=== PATIENT | female | born 1955 | race Two or more races ===

== ENCOUNTER → 2016-04-23 | Outpatient (CLI) | payer BC, OTHER ==
[2015-12-31 07:42] VITALS: BP 145/72
[~2016-04-23] MED LIST: ATOR10TA60 PO
[2016-04-23 08:04] LABS: BASO # 0.1 x10^3/uL (0.0-0.2); BASO % 1 % (0-3); EOS % 2 % (0-3); HEMATOCRIT 46.2 % (36.0-47.0); LYMPH # 2.9 x10^3/uL (1.0-4.8); LYMPH % 32 % (24-48); MEAN CORPUSCULAR HEMOGLOBIN 29 pg (25-35); MEAN CORPUSCULAR HGB CONC 33 g/dL (31-37); MEAN CORPUSCULAR VOLUME 90 fL (79-100); MONO % 8 % (0-9); NEUT % 58 % (31-73); PLATELET COUNT 184 x10^3/uL (140-400); RED BLOOD COUNT 5.14 x10^6/uL (3.50-5.40); RED CELL DISTRIBUTION WIDTH 13.8 % (11.5-14.5); WHITE BLOOD COUNT 9.2 x10^3/uL (4.0-11.0)
[2016-04-23 08:43] LABS: ALBUMIN/GLOBULIN RATIO 1.3 (1.0-1.7); CALCIUM 9.3 mg/dL (8.5-10.1); CHOLESTEROL/HDL RATIO 3.3; CREATININE 0.8 mg/dL (0.6-1.0); GFR 73.2; POTASSIUM 4.3 mmol/L (3.5-5.1); TOTAL BILIRUBIN 0.7 mg/dL (0.2-1.0); TOTAL PROTEIN 7.2 g/dL (6.4-8.2)
[2016-04-23 09:13] LABS: PLT ESTIMATE ADEQUATE (ADEQUATE)
== END | disposition home or self-care (01) ==
LOC: LAB 07:39
PROVIDERS: ATTEND Physician Assistant Medical
DX: I10 Essential (primary) hypertension (principal); E78.4 Other hyperlipidemia
CPT/HCPCS: 36415; 80053; 80061; 84443; 85007; 85027

== ENCOUNTER → 2016-05-07 | Outpatient (CLI) | payer OTHER ==
[2015-12-31 07:42] VITALS: BP 145/72
== END | disposition home or self-care (01) ==
LOC: EKG 07:52
PROVIDERS: ATTEND Physician Assistant Medical
DX: R55 Syncope and collapse (principal)
CPT/HCPCS: 93225

== ENCOUNTER → 2017-06-24 | Outpatient (CLI) | payer OTHER ==
[2017-06-24 07:45] LABS: ADD MAN DIFF? NO
[2017-06-24 07:52] LABS: BASO # 0.1 x10^3/uL (0.0-0.2); BASO % 1 % (0-3); EOS # 0.2 x10^3/uL (0.0-0.7); EOS % 2 % (0-3); HEMATOCRIT 44.2 % (36.0-47.0); HEMOGLOBIN 14.8 g/dL (12.0-15.5); LYMPH # 2.6 x10^3/uL (1.0-4.8); LYMPH % 30 % (24-48); MEAN CORPUSCULAR HEMOGLOBIN 30 pg (25-35); MEAN CORPUSCULAR HGB CONC 33 g/dL (31-37); MEAN CORPUSCULAR VOLUME 89 fL (79-100); MONO # 0.7 x10^3/uL (0.0-1.1); MONO % 9 % (0-9); NEUT # 5.2 x10^3uL (1.8-7.7); NEUT % 59 % (31-73); PLATELET COUNT 200 x10^3/uL (140-400); RED BLOOD COUNT 4.97 x10^6/uL (3.50-5.40); RED CELL DISTRIBUTION WIDTH 13.8 % (11.5-14.5); WHITE BLOOD COUNT 8.8 x10^3/uL (4.0-11.0)
[2017-06-24 08:12] LABS: ALBUMIN 3.5 g/dL (3.4-5.0); ALK PHOS 80 U/L (46-116); ALT (SGPT) 34 U/L (14-59); ANION GAP 8 (6-14); AST (SGOT) 18 U/L (15-37); BLOOD UREA NITROGEN 15 mg/dL (7-20); BUN/CREATININE RATIO 21 (6-20); CALCIUM 8.6 mg/dL (8.5-10.1); CARBON DIOXIDE 26 mmol/L (21-32); CHLORIDE 108 mmol/L (98-107); CHOLESTEROL 189 mg/dL (0-200); CREATININE 0.7 mg/dL (0.6-1.0); GFR 85.1; GLUCOSE 104 mg/dL (70-99); HDLC 49 mg/dL (40-60); LDLC 110 mg/dL (0-100); NON-HDL CHOLESTEROL 140 mg/dL (0-129); POTASSIUM 4.2 mmol/L (3.5-5.1); SODIUM 142 mmol/L (136-145); TOTAL BILIRUBIN 0.8 mg/dL (0.2-1.0); TRIGLYCERIDES 149 mg/dL (0-150); VLDLC 30 mg/dL (0-40)
[2017-06-24 08:13] LABS: CHOLESTEROL/HDL RATIO 3.9
[2017-06-24 08:22] LABS: THYROID STIM HORMONE (TSH) 3.805 uIU/mL (0.358-3.74)
== END | disposition home or self-care (01) ==
LOC: RAD 07:22
DX: M25.511 Pain in right shoulder (principal); R53.83 Other fatigue; E78.4 Other hyperlipidemia
CPT/HCPCS: 36415; 73030; 80053; 80061; 84443; 85025

== ENCOUNTER → 2017-12-15 | Outpatient (CLI) | payer OTHER ==
[2015-12-31 07:42] VITALS: BP 145/72
--- NOTE | 2017-12-15 10:37 | RAD ---
MRI study of the right shoulder without contrast Clinical indications: Chronic right shoulder pain. Decreased range of motion. No known injury. COMPARISON: No previous MRI study available. Radiographic study of the right shoulder dated June 24, 2017. TECHNIQUE: Noncontrast MRI sequences of the right shoulder were performed in all 3 planes. FINDINGS: There is increased signal within the supraspinatus and infraspinatus tendons consistent with tendinosis. No complete rotator cuff tear is evident. The subscapularis tendon is intact. The tendon of the long head of the biceps is intact. No muscle atrophy is seen. No subdeltoid or subacromial bursitis is seen. Type III acromial process is seen. There is mild degenerative osteoarthritis and spurring of the AC joint. These findings may impinge the acromial humeral space. Chronic erosions of the lateral aspect of the humeral head are seen secondary to chronic impingement. No fracture or marrow infiltrative process or bone contusion is seen otherwise. There is a moderate-sized glenohumeral joint especially distention of the subcoracoid recess. No loose body is evident. There is linear increased signal within the posterior superior aspect of the glenoid labrum posterior to the biceps anchor consistent with a SLAP lesion. In addition, there is truncation of the anterior glenoid labrum. The surface appears irregular. Therefore, this may represent a tear rather than anatomical variant. No paralabral ganglion cyst or spinoglenoid notch ganglion cyst is seen. IMPRESSION: Tendinosis of the rotator cuff. No complete rotator cuff tear is evident. Impingement of the acromial humeral space as discussed above. Moderate-sized glenohumeral joint effusion especially distention of the subcoracoid recess consistent with arthritis. No loose body is evident. SLAP lesion of the posterior superior aspect of the glenoid labrum is seen. There is an irregular defect of the anterior glenoid labrum. Irregular surface may indicate a tear rather than anatomical variant. Electronically signed by: Erlin Wilkerson MD (12/15/2017 10:33 AM) [id number]
== END | disposition home or self-care (01) ==
LOC: MRI 07:55
PROVIDERS: ATTEND Family Medicine
DX: M75.111 Incomplete rotator cuff tear or rupture of right shoulder, not specified as traumatic (principal); M25.411 Effusion, right shoulder; I10 Essential (primary) hypertension; E78.5 Hyperlipidemia, unspecified; I25.10 Atherosclerotic heart disease of native coronary artery without angina pectoris; Z90.722 Acquired absence of ovaries, bilateral; Z90.49 Acquired absence of other specified parts of digestive tract; Z90.710 Acquired absence of both cervix and uterus; Z88.5 Allergy status to narcotic agent; Z82.3 Family history of stroke; Z83.3 Family history of diabetes mellitus
CPT/HCPCS: 73221

== ENCOUNTER 2018-02-01 06:14 | Day surgery (SDC) | payer OTHER ==
[~2018-02-01] VITALS: Ht 160 cm; Wt 90.3 kg
[~2018-02-01 06:14] MED LIST changes: +AMLO5TAB7 PO; +IBUP200T44 PO
[2018-02-01] MEDS ORDERED: EPINEPHrine VIAL 30 MG/30 ML VIAL ONE (06:46)
[2018-02-01] MEDS: IV RINGERS,LACTATED 1000ML 1,000 ML IV SCH ×2 (06:53→09:50)
[2018-02-01] MEDS ORDERED: fentaNYL PF VIAL 100 MCG/2 ML VIAL IV PRN ×2 (07:00)
[2018-02-01] MEDS ORDERED: LIDOCAINE 1% PF 2 ML VIAL. ID PRN (07:00)
[2018-02-01] MEDS ORDERED: SCOPOLAMINE 1.5MG PATCH. TD ONE (07:00)
[2018-02-01] MEDS ORDERED: MORPHINE SULFATE 2 MG/ML VIAL. IV PRN (07:00)
[2018-02-01] MEDS ORDERED: ONDANSETRON PF 4 MG/2 ML VIAL. IV PRN (07:00)
[2018-02-01] MEDS ORDERED: PROCHLORPERAZINE 10 MG/2 ML VIAL. IV PRN (07:00)
[2018-02-01] MEDS ORDERED: LIDOCAINE 2% PF 2ML VIAL. ONE (07:03)
[2018-02-01] MEDS ORDERED: MIDAZOLAM HCL/PF 2 MG/2 ML VIAL. ONE (07:03)
[2018-02-01] MEDS ORDERED: BUPIVACAINE 0.5% 50 ML VIAL. ONE (07:03)
[2018-02-01] MEDS ORDERED: ROCURONIUM 50 MG/5 ML VIAL. ONE (07:18)
[2018-02-01] MEDS ORDERED: ONDANSETRON PF 4 MG/2 ML VIAL. ONE (07:18)
[2018-02-01] MEDS ORDERED: FAMOTIDINE 20 MG/2 ML VIAL ONE (07:18)
[2018-02-01] MEDS ORDERED: PROPOFOL 20 ML IV ONE (07:18)
[2018-02-01] MEDS ORDERED: LIDOCAINE 2% PF Vial for OR 5 ML VIAL. ONE (07:18)
[2018-02-01] MEDS ORDERED: fentaNYL PF VIAL 100 MCG/2 ML VIAL ONE (07:18)
[2018-02-01] MEDS ORDERED: DEXAMETHASONE SOD PHOS 20 MG/5 ML VIAL. ONE (07:18)
[2018-02-01] MEDS ORDERED: diphenhydrAMINE 50 MG/ML VIAL ONE (07:26)
[2018-02-01] MEDS ORDERED: NEOSTIGMINE METHYLSULFATE 5 MG/5 ML SYRINGE. ONE (09:14)
[2018-02-01] MEDS ORDERED: GLYCOPYRROLATE 1 MG/5 ML VIAL. ONE (09:14)
[2018-02-01] MEDS ORDERED: SEVOFLURANE > 120 MINUTES. IH ONE (09:24)
--- NOTE | 2018-02-01 10:10 | DISCH ---
DISCHARGE INSTRUCTIONS Condition on Discharge Condition on Discharge: Stable Activity After Discharge Activity Instructions for Disc: Activity as tolerated, Other, see below (fine motor use of right hand permitted eating writing typing etc., no lifting over 5 pounds resisted elbow flexion) Lifting Instructions after Dis: No heavy lifting, No pulling or pushing Driving Instructions after Dis: Other, see below (no driving on pain medications, may resume driving when otherwise comfortable) Weight Bearing Status after Di: As tolerated Diet after Discharge Diet after Discharge: Regular Diet Texture: Regular Wound Incision Care Wound/Incision Care: Ice to area for comfort, Change dressing (May remove dressing in 2 days may then shower, report any redness drainage occurring after initial dressing removal) Community/Resources/Services Services at Discharge: PT EVALUATE & TREAT (gentle stretching initially to right shoulder may either use sling or let arm swing it the side depending on comfort, plan to start physical therapy after follow-up visit) Contacting the after DC Call your doctor for: Concerns you may have Follow-Up Follow up with: Alicia 1 week Treatment/Equipment after DC Adaptive Equipment Issued: None QASIM AVILEZ MD Feb 01, 2018 10:10
[2018-02-01] MEDS ORDERED: OXYC-327 PO (10:11)
[2018-02-01] MEDS ORDERED: oxyCODONE/APAP 7.5/325 1 TAB TABLET PO ONE (10:30)
[2018-02-01 11:26] VITALS: BP 167/84
--- NOTE | 2018-02-01 15:49 | PDOC4 ---
Operative Note Operative Note Date of surgery: 02/01/2018 Preoperative diagnosis: Right shoulder SLAP tear and partial thickness undersurface rotator cuff tear Postoperative diagnosis: Same with minimal involvement partial thickness undersurface rotator cuff tear approximately 10%, significant superior labral fraying and biceps anchor compromise, chondral flap tears central aspect humeral head Operative procedure: Right shoulder arthroscopy biceps tenodesis, debridement undersurface rotator cuff tear posterior labrum and chondroplasty of humeral head Surgeon: Alicia Assist: Sammi Anesthesia: Gen. plus scalene block Estimated blood loss: 10 mL Complications: None Operative indications: Pretty is a 62-year-old female with right dominant shoulder pain unresponsive to nonoperative treatment and has significant bicipital irritation signs weakness and pain. I had gone over with her the MRI correlating it with physical findings and feel that symptoms appear primarily due to her superior labral tear. We had discussed the possibility of possible repair versus more likely biceps tenodesis and addressing any other pathological conditions in the shoulder. We had discussed the risks benefits postoperative course including possibility of continued pain nonhealing infection nerve or blood vessel damage medical or other anesthetic complications among others and went over the likely long recovery process and need for physical therapy. All her questions were answered consent was obtained and she agrees to proceed with surgical evaluation and treatment Operative text: Patient was identified procedure verified patient placed in the supine position on the operating table. After adequate amounts of general anesthesia plus a pre-existing scalene block were obtained she was placed decubitus right side up all bony prominences were well-padded shoulder was examined under anesthesia found to have full range of motion no instability. The right shoulder and upper extremity were then prepped and draped in standard sterile fashion placed in the arthroscopic arm wallace with a total of 10 pounds of traction and after timeout was performed patient procedure identified and verified a standard posterior portal was established anterior portal established using spinal needle localization and the shoulder joint was systematically examined. She was noted to have a type II SLAP tear with biceps tendon involvement and severe superior labral fraying. This was trimmed back to more stable tissue with arthroscopic shaver but I elected based on the instability and biceps anchor involvement to tag the biceps tendon and perform a Nakul decelerations. Undersurface rotator cuff tear of the distal supraspinatus was debrided back to stable tissue and only involved about 10% of the tendon substance. Subscapularis was noted to be intact she had significant chondral flap tearing of the central aspect of the humeral head that was trimmed back to stable tissue using the arthroscopic shaver and edges gently smoothed with the bipolar cautery from a distance. Posterior labrum was likewise debrided back to stable tissue she had a normal bare area of the humerus and capsule ligament structures. Biceps was then tenodesis from the anterior portal using a Ohmconnect biceps tenodesis screw and excellent tension was noted and screw fixation. The joint was drained of arthroscopic fluid portals closed with buried Vicryl suture and nylon at the skin surface sterile dressings were applied she was returned to recovery room in stable condition having tolerated procedure well. Efraín Chapa nurse practitioner was present for the procedure and assisted in prepping draping aspects of the procedure as well as skin closure QASIM AVILEZ MD Feb 01, 2018 15:49
== END 2018-02-01 12:00 | disposition home or self-care (01) ==
LOC: SURG 06:14
PROVIDERS: ATTEND Orthopaedic Surgery
DX: S43.431A Superior glenoid labrum lesion of right shoulder, initial encounter (principal); S46.011A Strain of muscle(s) and tendon(s) of the rotator cuff of right shoulder, initial encounter; X58.XXXA Exposure to other specified factors, initial encounter; Y93.89 Activity, other specified; Y92.89 Other specified places as the place of occurrence of the external cause; Y99.8 Other external cause status; I25.10 Atherosclerotic heart disease of native coronary artery without angina pectoris; E78.5 Hyperlipidemia, unspecified; I10 Essential (primary) hypertension; Z79.899 Other long term (current) drug therapy; Z79.1 Long term (current) use of non-steroidal anti-inflammatories (NSAID); Z90.710 Acquired absence of both cervix and uterus; Z90.49 Acquired absence of other specified parts of digestive tract; Z90.722 Acquired absence of ovaries, bilateral; Z88.5 Allergy status to narcotic agent; Z98.890 Other specified postprocedural states
CPT/HCPCS: 29823; 29828; A7015; C1713; J0171; J0690; J0780; J1100; J1200; J2001; J2250; J2405; J2704; J2710; J3010; J3490; J7120

== ENCOUNTER → 2018-03-28 | Outpatient (CLI) | payer OTHER ==
[~2018-03-28] MED LIST changes: +OXYC1TAB19 PO
--- NOTE | 2018-03-29 08:21 | RAD ---
Chest, 2 views, 03/28/2018: HISTORY: Upper respiratory virus Comparison is made to a study from 12/29/2015. The heart size is normal. There is moderate tortuosity of the thoracic aorta. The pulmonary vascularity is normal. There is minimal linear scarring in the lingula. No acute infiltrate is seen. There is no evidence of pleural fluid. Surgical clips are present in the upper abdomen. IMPRESSION: No acute cardiopulmonary abnormality is detected. Electronically signed by: Stefano Bliss MD (03/29/2018 8:17 AM) [facility]
== END | disposition home or self-care (01) ==
LOC: RAD 15:05
PROVIDERS: ATTEND Family Medicine
DX: J06.9 Acute upper respiratory infection, unspecified (principal); I77.1 Stricture of artery
CPT/HCPCS: 71046

== ENCOUNTER → 2018-10-05 | Outpatient (CLI) | payer OTHER ==
[~2018-10-05] MED LIST changes: +AMLO5TAB10 PO; -AMLO5TAB7 PO
[2018-10-05 09:11] LABS: BASO # 0.1 x10^3/uL (0.0-0.2); BASO % 1 % (0-3); EOS # 0.2 x10^3/uL (0.0-0.7); EOS % 2 % (0-3); HEMATOCRIT 44.4 % (36.0-47.0); HEMOGLOBIN 14.9 g/dL (12.0-15.5); LYMPH # 2.1 x10^3/uL (1.0-4.8); LYMPH % 26 % (24-48); MEAN CORPUSCULAR HEMOGLOBIN 30 pg (25-35); MEAN CORPUSCULAR HGB CONC 34 g/dL (31-37); MEAN CORPUSCULAR VOLUME 89 fL (79-100); MONO # 0.6 x10^3/uL (0.0-1.1); MONO % 8 % (0-9); NEUT % 63 % (31-73); PLATELET COUNT 181 x10^3/uL (140-400); RED BLOOD COUNT 4.97 x10^6/uL (3.50-5.40); RED CELL DISTRIBUTION WIDTH 13.9 % (11.5-14.5); WHITE BLOOD COUNT 7.9 x10^3/uL (4.0-11.0)
[2018-10-05 09:31] LABS: CALCIUM 8.8 mg/dL (8.5-10.1); CHOLESTEROL/HDL RATIO 3.5; CREATININE 0.8 mg/dL (0.6-1.0); GFR 72.7; POTASSIUM 4.1 mmol/L (3.5-5.1)
[2018-10-05 09:41] LABS: FREE T4 0.85 ng/dL (0.76-1.46); THYROID STIM HORMONE (TSH) 3.185 uIU/mL (0.358-3.74)
== END | disposition home or self-care (01) ==
LOC: LAB 08:19
PROVIDERS: ATTEND Internal Medicine
DX: Z13.220 Encounter for screening for lipoid disorders (principal); R53.83 Other fatigue
CPT/HCPCS: 36415; 80048; 80061; 82306; 84439; 84443; 85025

== ENCOUNTER → 2018-11-10 | Outpatient (CLI) | payer OTHER ==
--- NOTE | 2018-11-11 08:55 | RAD ---
DATE: 11/10/2018 9:00 AM EXAM: MAMMO ALFONSO SCREENING BILATERAL HISTORY: routine screening evaluation. COMPARISON: 08/04/2013 Bilateral CC and MLO views of the breasts were performed. Bilateral breast tomosynthesis was performed in CC and MLO projections. This study was interpreted with the benefit of Computerized Aided Detection (CAD). FINDINGS: Breast Density: SCATTERED The breast parenchyma shows scattered fibroglandular densities. Breast parenchyma level B No suspicious masses, microcalcifications or architectural distortion is present to suggest malignancy in either breast. The visualized axillae are unremarkable. IMPRESSION: No mammographic evidence of malignancy. BI-RADS CATEGORY: 2 BENIGN FINDING(S) RECOMMENDED FOLLOW-UP: 12M 12 MONTH FOLLOW-UP Annual screening mammography is recommended, unless clinically indicated sooner based on symptoms or change in physical exam. PQRS compliance statement: Patient information was entered into a reminder system with a target due date for the next mammogram. Mammography is a sensitive method for finding small breast cancers, but it does not detect them all and is not a substitute for careful clinical examination. A negative mammogram does not negate a clinically suspicious finding and should not result in delay in biopsying a clinically suspicious abnormality. "Our facility is accredited by the [employer] Mammography Program."
== END | disposition home or self-care (01) ==
LOC: MAMMO 08:54
PROVIDERS: ATTEND Internal Medicine
DX: Z12.31 Encounter for screening mammogram for malignant neoplasm of breast (principal)
CPT/HCPCS: 77063; 77067

== ENCOUNTER → 2019-07-27 | Outpatient (CLI) | payer OTHER | END | disposition home or self-care (01) | LOC: LAB 13:55 | PROVIDERS: ATTEND Internal Medicine Pulmonary Disease | DX: R51 Headache (principal); Z20.828 Contact with and (suspected) exposure to other viral communicable diseases | CPT/HCPCS: 36415; 87635 ==

== ENCOUNTER → 2019-10-31 | Outpatient (CLI) | payer OTHER | END | disposition home or self-care (01) | LOC: LAB 12:57 | PROVIDERS: ATTEND Family Medicine | DX: E55.9 Vitamin D deficiency, unspecified (principal) | CPT/HCPCS: 36415; 82306 ==

== ENCOUNTER → 2020-05-06 | Outpatient (CLI) | payer OTHER ==
[~2020-05-06] MED LIST changes: +AMLO-186 PO; -AMLO5TAB10 PO
[2020-05-06 08:22] LABS: BASO # 0.1 x10^3/uL (0.0-0.2); BASO % 1 % (0-3); EOS # 0.1 x10^3/uL (0.0-0.7); EOS % 2 % (0-3); HEMATOCRIT 46.4 % (36.0-47.0); HEMOGLOBIN 15.3 g/dL (12.0-15.5); LYMPH # 2.4 x10^3/uL (1.0-4.8); LYMPH % 29 % (24-48); MEAN CORPUSCULAR HEMOGLOBIN 30 pg (25-35); MEAN CORPUSCULAR HGB CONC 33 g/dL (31-37); MEAN CORPUSCULAR VOLUME 90 fL (79-100); MONO # 0.7 x10^3/uL (0.0-1.1); MONO % 8 % (0-9); NEUT # 5.1 x10^3/uL (1.8-7.7); NEUT % 61 % (31-73); PLATELET COUNT 226 x10^3/uL (140-400); RED BLOOD COUNT 5.14 x10^6/uL (3.50-5.40); RED CELL DISTRIBUTION WIDTH 13.9 % (11.5-14.5); WHITE BLOOD COUNT 8.4 x10^3/uL (4.0-11.0)
[2020-05-06 08:44] LABS: ALBUMIN 3.8 g/dL (3.4-5.0); ALBUMIN/GLOBULIN RATIO 1.2 (1.0-1.7); CALCIUM 9.3 mg/dL (8.5-10.1); CREATININE 0.8 mg/dL (0.6-1.0); GFR 72.2; POTASSIUM 4.2 mmol/L (3.5-5.1); TOTAL BILIRUBIN 0.8 mg/dL (0.2-1.0); TOTAL PROTEIN 6.9 g/dL (6.4-8.2)
[2020-05-06 08:46] LABS: CHOLESTEROL/HDL RATIO 3.6
[2020-05-06 08:57] LABS: FREE T4 0.96 ng/dL (0.76-1.46); THYROID STIM HORMONE (TSH) 4.365 uIU/mL (0.358-3.74)
== END ==
LOC: LAB 07:54
PROVIDERS: ATTEND Physician Assistant
DX: I10 Essential (primary) hypertension (principal); R42 Dizziness and giddiness; E78.5 Hyperlipidemia, unspecified; F43.9 Reaction to severe stress, unspecified
CPT/HCPCS: 36415; 80053; 80061; 84439; 84443; 85025

== ENCOUNTER → 2020-10-17 | Outpatient (CLI) | payer OTHER | LOC: LAB 13:03 | PROVIDERS: ATTEND Internal Medicine Pulmonary Disease | DX: Z20.822 Contact with and (suspected) exposure to COVID-19 (principal) | CPT/HCPCS: 87426; U0003; U0005 ==

== ENCOUNTER → 2021-02-04 | Outpatient (CLI) | payer OTHER ==
[~2021-02-04] MED LIST changes: +GADOTERATE 7.5 MMOL/15ML VIAL. IVP ONE
--- NOTE | 2021-02-04 15:29 | RAD ---
MRI BRAIN WO+W Date: 02/04/2021 12:47 PM Indication: MIGRAINE W/ AURA Comparison: None. Technique: Multiplanar multisequence MRI of the brain was performed with and without intravenous cont rast using the standard protocol. 18 cc Clariscan contrast was administered intravenously during the exam. Findings: No acute infarct. No acute or chronic hemorrhage. The ventricles are normal in size and configuration without hydrocephalus. Left cerebellar chronic lacunar infarcts. No abnormal enhancement. The scalp and calvarium are normal. The pituitary and sella are normal. No Chiari malformation. Mild incompletely characterized degenerative spondylosis of the visualized upper cervical spine. The visualized orbits and globes are normal. The visualized paranasal sinuses are clear. The mastoid air cells are clear. Normal flow voids within the vertebral, basilar, and internal carotid arteries indicating patency. IMPRESSION: 1. No acute infarct or hemorrhage. No mass or abnormal enhancement. 2. Left cerebellar chronic lacunar infarcts. Electronically signed by: Jose Martin Morales MD (02/04/2021 3:26 PM) [id number]
== END ==
LOC: MRI 12:35
PROVIDERS: ATTEND Physician Assistant
DX: I63.81 Other cerebral infarction due to occlusion or stenosis of small artery (principal); G43.109 Migraine with aura, not intractable, without status migrainosus
CPT/HCPCS: 70553; A9575

== ENCOUNTER 2021-07-01 07:40 | Emergency (ER) | payer OTHER ==
[~2021-07-01] VITALS: Ht 160 cm; Wt 92.1 kg
[~2021-07-01 07:40] MED LIST changes: -GADOTERATE 7.5 MMOL/15ML VIAL. IVP ONE
[2021-07-01 07:43] VITALS: BP 154/70
--- NOTE | 2021-07-01 08:14 | PHYS DOC ---
Past Medical History Past Medical History: Hypertension Past Surgical History: Appendectomy, Hysterectomy, Tonsillectomy, Other Additional Past Surgical Histo: knee Smoking Status: Never Smoker Alcohol Use: None Drug Use: None Adult General Chief Complaint Chief Complaint: UPPER EXTREMITY INJURY [facility] HPI Patient is a 66 year old female presenting to the emergency department for evaluation of left shoulder pain status post falling in the parking lot. 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 She says she also landed on outstretched right hand as well and is complaining of pain in the right wrist. She has an abrasion to her right knee and says she is unsure when her last tetanus was so will be updated here. She says most of her pain is in her left shoulder she felt a popping sensation in her left shoulder and then she relaxed and felt it pop back into place. She says she has intermittent tingling to all of her fingers that is coming and going but she has none at this time. She denies any head neck chest abdomen back or other extremity pain or trauma. She is in no acute distress with normal vital signs. 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 Review of Systems Review of Systems Constitutional: Denies fever or chills [] Respiratory: Denies cough or shortness of breath [] Cardiovascular: No additional information not addressed in HPI [] GI: Denies abdominal pain, nausea, vomiting, bloody stools or diarrhea [] Musculoskeletal: + L shoulder joint pain. + R wrist, R knee pain Integument: Positive abrasion. Neurologic: Denies headache, focal weakness or sensory changes [] All other systems were reviewed and found to be within normal limits, except as documented in this note. Current Medications Current Medications Current Medications Medications (Trade) Dose Ordered Sig/Mariaa Start Time Stop Time Status Last Admin Dose Admin Acetaminophen/ Hydrocodone Bitart (Lortab 5/325) 1 tab 1X ONCE 07/01/21 08:15 07/01/21 08:16 DC Diphtheria/ Tetanus/Acell Pertussis (Boostrix) 0.5 ml ONCE ONCE 07/01/21 08:15 07/01/21 08:16 DC Ibuprofen (Motrin) 800 mg 1X ONCE 07/01/21 08:15 07/01/21 08:16 DC 07/01/21 08:24 800 MG Allergies Allergies Allergies Coded Allergies Type Severity Reaction Last Updated Verified morphine Allergy Intermediate RASH, TURNS ARM RED 02/01/18 Yes Physical Exam Physical Exam Constitutional: Well developed, well nourished, no acute distress, non-toxic appearance. [] HENT: Normocephalic, atraumatic Skin: Abrasion to right knee Back: No midline cervical thoracic or lumbar tenderness to palpation Extremities: Positive right wrist right knee and left shoulder pain with decreased range of motion of left shoulder due to pain. 5 out of 5 instructional designer strength bilaterally with 2+ radial pulse bilaterally. Neurologic: Alert and oriented X 3, normal motor function, normal sensory func tion, no focal deficits noted. [] Current Patient Data Vital Signs Vital Signs Date Time Temp Pulse Resp B/P (MAP) Pulse Ox O2 Delivery O2 Flow Rate FiO2 07/01/21 07:43 97.7 75 18 154/70 (98) 98 Room Air 97.7 EKG EKG [] Radiology/Procedures Radiology/Procedures [] Course & Med Decision Making Course & Med Decision Making I will treat pain update tetanus acquire x-rays and reassess. Right knee and wrist x-rays are negative for acute process. Left shoulder x-ray shows glenoid fracture. Repeat neurovascular exam is normal pre and post sling application. Patient is a 89 hurry to be discharged so I will prescribe her supportive medications and have her follow with orthopedics as an outpatient. All questions were answered and she was discharged in stable condition. Dragon Disclaimer Dragon Disclaimer This electronic medical record was generated, in whole or in part, using a voice recognition dictation system. Departure Departure Impression: Primary Impression: Fracture of glenoid cavity of left scapula Additional Impressions: Left wrist sprain Left knee sprain Abrasion, left knee, initial encounter Disposition: HOME / SELF CARE / HOMELESS Condition: STABLE Referrals: BEST FAULKNER MD (PCP) SONJA RAMIREZ MD Patient Instructions: Shoulder Fracture (Proximal Humerus or Glenoid)-SportsMed Additional Instructions: Ibuprofen for pain. [place] for breakthrough pain. Follow with ortho. Come back with any concerns. Thank you! Scripts Hydrocodone Bit/Acetaminophen (HYDROCODONE-APAP 5-325 ) 1 Tab Tablet 1 TAB PO PRN Q6HRS PRN for PAIN for 4 Days, #16 TAB 0 Refills Prov: BEST SOTO DO 07/01/21 Problem Qualifiers Primary Impression: Fracture of glenoid cavity of left scapula Encounter type: initial encounter Fracture type: closed Fracture alignm ent: nondisplaced Qualified Codes: S42.145A - Nondisplaced fracture of glenoid cavity of scapula, left shoulder, initial encounter for closed fracture BEST SOTO DO Jul 01, 2021 08:14
[2021-07-01] MEDS ORDERED: DIPHTH,PERTUSS(ACELL),TET TOX 0.5 ML DISP.SYRIN. VAX IM ONE (08:15)
[2021-07-01] MEDS ORDERED: HYDROcodone/APAP 5/325MG 1 TAB TABLET PO ONE (08:15)
[2021-07-01] MEDS ORDERED: IBUPROFEN 400 MG TABLET. PO ONE (08:15)
--- NOTE | 2021-07-01 09:00 | RAD ---
Left wrist 3 views, left shoulder 3 views, right knee 3 views. HISTORY: Left wrist pain after a fall, left shoulder pain after a fall, right knee pain after a fall. Right knee. 3 views were taken of the right knee. There is not evidence of a fracture or joint effusion or acute osseous abnormality. Left shoulder 3 views were taken of the left shoulder. There is a bone density at the inferior margin of the glenoi d which suggests an avulsion or chip fracture. MRI or CT could be of benefit. There is no dislocation . There is no other fracture. Left wrist 3 views were taken of the left wrist. There is not evidence of an acute fracture or osseous abnormali ty. IMPRESSION: 1. No fracture or osseous abnormality left wrist. 2. Fracture or avulsion at the inferior glenoid. 3. No other fracture or dislocation left shoulder. 4. No acute osseous abnormality right knee. Electronically signed by: Adam Kemp MD (07/01/2021 8:58 AM) [id number]
[2021-07-01] MEDS ORDERED: HYDR-2761 PO (09:11)
== END 2021-07-01 09:27 | disposition home or self-care (01) ==
LOC: ER 07:40
DX: S42.145A Nondisplaced fracture of glenoid cavity of scapula, left shoulder, initial encounter for closed fracture (principal); S80.211A Abrasion, right knee, initial encounter; I10 Essential (primary) hypertension; M25.561 Pain in right knee; M25.532 Pain in left wrist; Z88.5 Allergy status to narcotic agent; W18.39XA Other fall on same level, initial encounter; Y93.89 Activity, other specified; Y92.481 Parking lot as the place of occurrence of the external cause; Y99.8 Other external cause status
CPT/HCPCS: 73030; 73120; 73562; 99284; A4565

== ENCOUNTER → 2021-07-02 | Outpatient (CLI) | payer OTHER ==
[2021-07-01 07:43] VITALS: BP 154/70
[~2021-07-02] MED LIST changes: +HYDR-2761 PO
--- NOTE | 2021-07-02 12:35 | RAD ---
Examination: MRI of the left shoulder without contrast HISTORY: History of fracture of the glenoid process of the scapula, fall, injury COMPARISON: None TECHNIQUE: Multiplanar, multisequence MR imaging of the left shoulder was performed without contrast. FINDINGS: The long head of the biceps tendon within the bicipital groove. The attachment of the long head the b iceps tendon to the superior labral anchor grossly appears intact. The attachment of the subscapularis tendon grossly appears intact. The attachment of supraspinatus te ndon, infraspinatus tendons grossly appears intact. Mild increased T2 signal identified in the subsca pularis, supraspinatus and infraspinatus tendons likely tendinosis. There is nondisplaced fracture of the greater tuberosity of the humerus and increased signal identified in the posterior lateral humer us head with Hill-Sachs lesion. There is a large tear of the anterior inferior labrum from 3 to 6:00 position o'clock with bony Bankart with a large displaced fracture fragment of the glenoid measuring 1.4 cm in the anterior and anterior inferior glenoid involving the labrum and the cartilage with the fracture fragment displaced posteriorly and inferiorly in the shoulder joint, best visualized on seri es 3001 image 20. Moderate increased T2 signal identified about the shoulder joint mostly about the capsule of the shou lder joint likely secondary to injury. Increased T2 signal identified in the inferior glenohumeral li gament anterior band could be secondary to injury. The acromion is type II. Mild degenerative changes acromioclavicular joint, glenohumeral joint The muscle bulk grossly appears unremarkable. IMPRESSION: 1. Nondisplaced fracture of the greater tuberosity of the humerus and increased signal identified in the posterior lateral humerus head with Hill-Sachs lesion. 2. Large tear of the anterior inferior labrum from 3 to 6:00 position with bony Bankart with a large displaced fracture fragment of the glenoid measuring 1.4 cm from the anterior and anterior inferior glenoid involving the labrum and the cartilage with the fracture fragment displaced posteriorly and i nferiorly in the shoulder joint. 3. Increased T2 signal identified in the inferior glenohumeral ligament anterior band could be secon raz to injury. 4. Moderate increased T2 signal identified about the capsule of the shoulder joint likely secondary to injury. 5. Mild rotator cuff tendinosis. Electronically signed by: Tyler Sprague MD (07/02/2021 12:33 PM) [id number]
== END ==
LOC: MRI 09:31
PROVIDERS: ATTEND Orthopaedic Surgery
DX: S42.255A Nondisplaced fracture of greater tuberosity of left humerus, initial encounter for closed fracture (principal); S43.492A Other sprain of left shoulder joint, initial encounter; M75.82 Other shoulder lesions, left shoulder; M19.012 Primary osteoarthritis, left shoulder; W19.XXXA Unspecified fall, initial encounter; Y93.89 Activity, other specified; Y92.89 Other specified places as the place of occurrence of the external cause; Y99.8 Other external cause status
CPT/HCPCS: 73221

== ENCOUNTER → 2021-07-17 | Outpatient (CLI) | payer OTHER ==
[2021-07-01 07:43] VITALS: BP 154/70
--- NOTE | 2021-07-17 13:28 | RAD ---
CT left shoulder without contrast dated 07/17/2021. CLINICAL INDICATION: Evaluate glenoid fracture COMPARISON: MRI dated 07/02/2021. TECHNIQUE: Contiguous axial imaging of the left shoulder performed with thin cut coronal and sagittal reconstruc tion. One or more of the following individualized dose reduction techniques were utilized for this examinat ion: 1. Automated exposure control 2. Adjustment of the mA and/or kV according to patient size 3. Use of iterative reconstruction technique. FINDINGS: There is comminuted fracture at the anterior inferior glenoid with curvilinear corticated bone fragme nt that is mildly displaced. There is also a curvilinear fragment of bone displaced inferiorly in the posterior joint space that measures up to 1.6 cm in size. There is a moderate size joint effusion. S mall Hill-Sachs impaction fracture of the superior lateral humeral head with vague radiolucency in th e greater tuberosity that suggests nondisplaced fracture, similar to prior MRI. Scapula and humerus are otherwise intact. No apparent clavicle fracture. There is mild degenerative c hange at the AC joint. No apparent rib fracture. Visualized soft tissue structures are otherwise unremarkable. Limited images of the left lung are benjamin ar. There is some linear opacity in the left upper lobe/lingula, likely atelectasis. Prominent hiatal hernia. IMPRESSION: 1. Comminuted fracture of the anterior inferior glenoid, consistent with bony Bankart fracture. There is a 1.6 cm curvilinear loose body in the is displaced into the posterior inferior joint space. 2. Small Hill-Sachs impaction fracture of the superior lateral humeral head with suspected nondisplac ed fracture of the greater tuberosity. Findings are similar to recent MRI given differences in techni que. 3. Moderate size joint effusion. Electronically signed by: Odin Abrams MD (07/17/2021 1:26 PM) [facility]
== END ==
LOC: CT 11:12
PROVIDERS: ATTEND Orthopaedic Surgery Sports Medicine
DX: S42.142A Displaced fracture of glenoid cavity of scapula, left shoulder, initial encounter for closed fracture (principal); S42.292A Other displaced fracture of upper end of left humerus, initial encounter for closed fracture; M25.412 Effusion, left shoulder; X58.XXXA Exposure to other specified factors, initial encounter; Y93.89 Activity, other specified; Y92.89 Other specified places as the place of occurrence of the external cause; Y99.8 Other external cause status
CPT/HCPCS: 73200